=== PATIENT | female | born 1975 | race Caucasian/White ===

== ENCOUNTER 2016-03-24 11:23 | Emergency (ER) | payer SELFPAY ==
[~2016-03-24] VITALS: Ht 165.1 cm; Wt 87.1 kg
[~2016-03-24 11:23] MED LIST: ADVAIR HFA120 INHALA IH; ALBUTEROL SULF8.5 GM IH; AMOXICILLIN500 M1 PO; ANUSOL-HC21 GM PR; CEFDINIR300 MG PO; COLACE100 MG PO; CYMBALTA20 MG PO; DEPRESSION MED; EFFEXOR25 MG PO; FIORICET 50-301 EACH PO; FIORICET,ESG1 TABLET PO; FLEXERIL10 MG PO; FLEXERIL5 MG PO; HYCODAN SYRUP480 ML PO; IBUPROFEN600 MG PO; IBUPROFEN800 MG PO; INDOCIN25 MG PO; INDOCIN50 MG PO; KEFLEX500 MG PO; LEVAQUIN500 MG PO; LORTAB 5-325 M1 EACH PO; MOBIC15 MG PO; MOBIC7.5 MG PO; MOTRIN600 MG PO; MOTRIN800 MG PO; NAPROSYN500 MG PO; NAPROXEN500 MG PO; NOHOMEMEDS; NORCO 5/3251 TABLET PO; NORCO 7.5/321 TABLET PO; PEN-VEE K,VEET500 MG PO; PERCOCET 5/31 TABLET PO; PREDNISONE20 MG PO; PRILOSEC20 MG PO; PROTONIX20 MG PO; PROVENTIL17 GM IH; ROBITUSSIN AC,T10 ML PO; SEIZURE MEDICATION PO; SKELAXIN800 MG PO; TORADOL10 MG PO; ULTRACET1 TABLET PO; ULTRAM50 MG PO; VENTOLIN HFA18 GM IH; VICODIN 5-3001 EACH PO; ZOFRAN ODT4 MG PO; ZOFRAN4 MG PO; ZOFRAN8 MG PO; seizure medication
[2016-03-24 12:14] LABS: HEMATOCRIT 37.7 % (36.0-46.0); MCH 30.3 PG (29.0-34.0); MCHC 33.7 G/DL (30.0-36.0); MEAN PLAT.VOLUME 10.4 uM^3 (9.5-12.4); PLATELET COUNT 260 K/uL (156-360); RBC DIS.WIDTH-CV 12.6 % (11.8-14.6); RBC DIS.WIDTH-SD 40.7 % (39-53); RED BLOOD COUNT 4.19 M/uL (3.80-5.20); WHITE BLOOD COUNT 6.2 K/uL (4.1-10.2)
[2016-03-24 12:31] LABS: D-DIMER ELISA < 0.15 mg/L FEU (< 0.57); TROP-I INTERPRETATION NEGATIVE; TROPONIN-I < 0.01 ng/mL (0.0-0.30)
[2016-03-24 12:43] LABS: ANION GAP 6 MEQ/L (2-14); CHLORIDE 104 MEQ/L (99-109); POTASSIUM 3.7 MEQ/L (3.7-5.4); SAMPLE HEMOLYSIS CHECK 0; SAMPLE ICTERIC CHECK 0; SAMPLE LIPEMIA CHECK 0; SODIUM 139 MEQ/L (136-147)
[2016-03-24 12:49] LABS: GFR ESTIMATE (CALCULATED) > 59 mL/min/; GLUCOSE 102 mg/dL (70-99); UREA NITROGEN (BUN) 13 mg/dL (9-23)
[2016-03-24] MEDS ORDERED: NAPROSYN500 MG PO (14:42)
[2016-03-24 15:03] LABS: TROP-I INTERPRETATION NEGATIVE; TROPONIN-I < 0.01 ng/mL (0.0-0.30)
[2016-03-24 15:19] VITALS: BP 114/58
== END 2016-03-24 15:22 | disposition home or self-care (01) ==
LOC: EME 11:23
PROVIDERS: Nurse Practitioner Family
DX: M94.0 Chondrocostal junction syndrome [Tietze] (principal); M54.6 Pain in thoracic spine; R20.0 Anesthesia of skin; R20.2 Paresthesia of skin; R42 Dizziness and giddiness; R05 Cough; R06.02 Shortness of breath; R51 Headache
CPT/HCPCS: 71020; 72070; 80048; 84484; 85027; 85379; 93005; 99281; 99285

== ENCOUNTER 2016-06-11 09:10 | Emergency (ER) | payer SELFPAY ==
[~2016-06-11] VITALS: Ht 165.1 cm; Wt 86.9 kg
[2016-06-11 10:34] VITALS: BP 120/63
== END 2016-06-11 10:34 | disposition home or self-care (01) ==
LOC: EME 09:10
DX: S93.501A Unspecified sprain of right great toe, initial encounter (principal); X50.0XXA Overexertion from strenuous movement or load, initial encounter
CPT/HCPCS: 73630; 99281; 99284

== ENCOUNTER 2016-07-17 00:34 | Emergency (ER) | payer SELFPAY ==
[~2016-07-17] VITALS: Ht 165.1 cm; Wt 89.7 kg
[2016-07-17 01:19] LABS: EOSINOPHIL (%) 3.3 % (0-5); EOSINOPHIL COUNT 0.2 K/uL (0-0.3); IMMATURE GRANULOCYTE (%) 0.3 % (0.0-0.7); INSTRUMENT ABS NEUTROPHIL CT 3.6 K/uL; LYMPHOCYTE COUNT 2.8 K/uL (1.0-2.8); MCH 29.8 PG (29.0-34.0); MCHC 33.3 G/DL (30.0-36.0); MCV 89.7 FL (83-99); MONOCYTE (%) 9.1 % (3-12); MONOCYTE COUNT 0.7 K/uL (0-0.8); NEUTROPHIL (%) 48.4 % (45-76); NEUTROPHIL COUNT 3.6 K/uL (1.8-6.4); PLATELET COUNT 302 K/uL (156-360); RBC DIS.WIDTH-CV 13.1 % (11.8-14.6); RBC DIS.WIDTH-SD 43.3 % (39-53); RED BLOOD COUNT 4.46 M/uL (3.80-5.20); WHITE BLOOD COUNT 7.4 K/uL (4.1-10.2)
[2016-07-17 01:27] LABS: CHLORIDE 110 mEq/L (99-109); POTASSIUM 3.5 mEq/L (3.7-5.4); SODIUM 145 mEq/L (136-147)
[2016-07-17 01:30] LABS: GLUCOSE 97 mg/dL (70-99)
[2016-07-17 01:31] LABS: ANION GAP 11 MEQ/L (2-14)
[2016-07-17 01:32] LABS: TOTAL BILIRUBIN 0.9 mg/dL (0.0-1.0)
[2016-07-17 01:33] LABS: ALKALINE PHOSPHATASE 60 IU/L (3-129); GFR ESTIMATE (CALCULATED) > 59 mL/min/
[2016-07-17 01:34] LABS: UREA NITROGEN (BUN) 10 mg/dL (9-23)
[2016-07-17 01:37] LABS: LIPASE 21 U/L (1.0-51.0)
[2016-07-17 04:52] VITALS: BP 105/55
[2016-07-18] MEDS ORDERED: PEPCID20 MG PO (21:35)
[2016-07-18] MEDS ORDERED: CARAFATE1 GM PO (21:35)
[2016-07-18] MEDS ORDERED: PROMETHAZINE HC25 M1 PO (21:36)
== END 2016-07-17 05:02 | disposition home or self-care (01) ==
LOC: EME 00:34
PROVIDERS: Emergency Medicine
DX: K52.9 Noninfective gastroenteritis and colitis, unspecified (principal); J45.909 Unspecified asthma, uncomplicated; E78.5 Hyperlipidemia, unspecified; K21.9 Gastro-esophageal reflux disease without esophagitis; Z87.442 Personal history of urinary calculi
CPT/HCPCS: 70450; 74177; 80053; 83690; 85025; 99281; 99284; J1200; J2270; J2405; J2765; J7030

== ENCOUNTER 2016-07-18 16:26 | Emergency (ER) | payer SELFPAY ==
[~2016-07-18] VITALS: Ht 165.1 cm; Wt 90.8 kg
[2016-07-18 17:28] LABS: HEMATOCRIT 40.1 % (36.0-46.0); MCH 30.2 PG (29.0-34.0); MCHC 33.2 G/DL (30.0-36.0); MCV 90.9 FL (83-99); MEAN PLAT.VOLUME 10.1 uM^3 (9.5-12.4); PLATELET COUNT 322 K/uL (156-360); RBC DIS.WIDTH-CV 13.1 % (11.8-14.6); RBC DIS.WIDTH-SD 43.6 % (39-53); RED BLOOD COUNT 4.41 M/uL (3.80-5.20); WHITE BLOOD COUNT 9.1 K/uL (4.1-10.2)
[2016-07-18 17:40] LABS: CHLORIDE 108 mEq/L (99-109); POTASSIUM 3.8 mEq/L (3.7-5.4); SODIUM 140 mEq/L (136-147)
[2016-07-18 17:43] LABS: GLUCOSE 98 mg/dL (70-99)
[2016-07-18 17:44] LABS: ANION GAP 9 MEQ/L (2-14)
[2016-07-18 17:46] LABS: ALKALINE PHOSPHATASE 63 IU/L (3-129); GFR ESTIMATE (CALCULATED) > 59 mL/min/
[2016-07-18 17:47] LABS: UREA NITROGEN (BUN) 13 mg/dL (9-23)
[2016-07-18 17:48] LABS: TOTAL BILIRUBIN 1.1 mg/dL (0.0-1.0)
[2016-07-18 17:58] LABS: QUANTITATIVE HCG < 4.0 MIU/ML
[2016-07-18 18:51] LABS: ADD MIUA? YES; BILIRUBIN NEGATIVE; BLOOD LARGE; COLOR YELLOW ((YELLOW)); GLUCOSE (STRIP) NEGATIVE; KETONES NEGATIVE; LEUKOCYTES NEGATIVE; NITRITE NEGATIVE; PROTEIN (STRIP) NEGATIVE; SPECIFIC GRAVITY 1.016 (1.000-1.030); UROBILINOGEN 0.2 MG/DL (0.2-1.0)
[2016-07-18 18:58] LABS: BACTERIA NONE SEEN /HPF; EPITHELIAL CELLS 1+ /HPF; MUCUS TRACE /LPF; RED BLOOD CELLS TNTC /HPF (0-5); UCUL ADDED? NO; WHITE BLOOD CELLS 0-5 /HPF (0-5)
[2016-07-18] MEDS ORDERED: CARAFATE1 GM PO (21:35)
[2016-07-18] MEDS ORDERED: PEPCID20 MG PO (21:35)
[2016-07-18] MEDS ORDERED: PROMETHAZINE HC25 M1 PO (21:36)
[2016-07-18 21:47] VITALS: BP 155/86
== END 2016-07-18 21:47 | disposition home or self-care (01) ==
LOC: EME 16:26
DX: R10.33 Periumbilical pain (principal)
CPT/HCPCS: 76705; 80053; 81003; 84702; 85027; 93005; 99281; 99284; J2550

== ENCOUNTER 2016-08-17 19:12 | Emergency (ER) | payer SELFPAY ==
[~2016-08-17] VITALS: Ht 165.1 cm; Wt 91.3 kg
[~2016-08-17 19:12] MED LIST changes: +CARAFATE1 GM PO; +PEPCID20 MG PO; +PROMETHAZINE HC25 M1 PO
[2016-08-17] MEDS ORDERED: MOTRIN600 MG PO (20:00)
[2016-08-17] MEDS ORDERED: PREDNISONE50 MG PO (20:00)
[2016-08-17] MEDS ORDERED: TRAMADOL HCL50 MG PO (20:00)
[2016-08-17 20:14] VITALS: BP 122/81
== END 2016-08-17 20:14 | disposition home or self-care (01) ==
LOC: EME 19:12
DX: M54.12 Radiculopathy, cervical region (principal); J45.909 Unspecified asthma, uncomplicated
CPT/HCPCS: 99281; 99283

== ENCOUNTER 2016-09-08 15:05 | Emergency (ER) | payer SELFPAY ==
[~2016-09-08] VITALS: Ht 165.1 cm; Wt 93.3 kg
[~2016-09-08 15:05] MED LIST changes: +PREDNISONE50 MG PO; +TRAMADOL HCL50 MG PO
[2016-09-08] MEDS ORDERED: NAPROSYN500 MG PO (17:36)
[2016-09-08] MEDS ORDERED: ULTRAM50 MG PO (17:36)
[2016-09-08 17:58] VITALS: BP 165/61
== END 2016-09-08 17:59 | disposition home or self-care (01) ==
LOC: EME 15:05
DX: M79.671 Pain in right foot (principal)
CPT/HCPCS: 73630; 99281; 99283

== ENCOUNTER 2016-09-25 10:44 | Emergency (ER) | payer SELFPAY ==
[~2016-09-25] VITALS: Ht 165.1 cm; Wt 92.6 kg
[2016-09-25] MEDS ORDERED: MEDROL DOSEPAK4 MG PO (14:02)
[2016-09-25] MEDS ORDERED: FLEXERIL10 MG PO (14:02)
[2016-09-25 16:18] VITALS: BP 142/65
== END 2016-09-25 16:27 | disposition home or self-care (01) ==
LOC: EME 10:44
DX: M54.12 Radiculopathy, cervical region (principal); S46.811A Strain of other muscles, fascia and tendons at shoulder and upper arm level, right arm, initial encounter; G89.29 Other chronic pain; M79.671 Pain in right foot; M79.674 Pain in right toe(s); M48.02 Spinal stenosis, cervical region; Z87.442 Personal history of urinary calculi
CPT/HCPCS: 70450; 72141; 93005; 99281; 99284; J1885

== ENCOUNTER 2016-10-24 19:02 | Emergency (ER) | payer SELFPAY ==
[~2016-10-24] VITALS: Ht 165.1 cm; Wt 95.0 kg
[~2016-10-24 19:02] MED LIST changes: +MEDROL DOSEPAK4 MG PO
[2016-10-24 21:27] LABS: HEMATOCRIT 40.4 % (36.0-46.0); MCH 30.5 PG (29.0-34.0); MCHC 33.4 G/DL (30.0-36.0); MCV 91.4 FL (83-99); MEAN PLAT.VOLUME 9.6 uM^3 (9.5-12.4); PLATELET COUNT 282 K/uL (156-360); RBC DIS.WIDTH-CV 13.8 % (11.8-14.6); RBC DIS.WIDTH-SD 45.8 % (39-53); RED BLOOD COUNT 4.42 M/uL (3.80-5.20); WHITE BLOOD COUNT 10.4 K/uL (4.1-10.2)
[2016-10-24 21:34] LABS: CHLORIDE 104 mEq/L (99-109); POTASSIUM 3.4 mEq/L (3.7-5.4); SODIUM 138 mEq/L (136-147)
[2016-10-24 21:36] LABS: GLUCOSE 89 mg/dL (70-99)
[2016-10-24 21:38] LABS: ANION GAP 10 MEQ/L (2-14); TOTAL BILIRUBIN 0.6 mg/dL (0.0-1.0)
[2016-10-24 21:40] LABS: ALKALINE PHOSPHATASE 73 IU/L (3-129); GFR ESTIMATE (CALCULATED) > 59 mL/min/
[2016-10-24 21:41] LABS: UREA NITROGEN (BUN) 12 mg/dL (9-23)
[2016-10-24 21:43] LABS: LIPASE 35 U/L (1.0-51.0)
[2016-10-24 21:49] LABS: QUANTITATIVE HCG < 4.0 MIU/ML
[2016-10-24 22:25] LABS: ADD MIUA? YES; BILIRUBIN NEGATIVE; BLOOD MODERATE; COLOR YELLOW ((YELLOW)); GLUCOSE (STRIP) NEGATIVE; KETONES NEGATIVE; LEUKOCYTES NEGATIVE; NITRITE NEGATIVE; PROTEIN (STRIP) NEGATIVE; SPECIFIC GRAVITY 1.021 (1.000-1.030); UROBILINOGEN 0.2 MG/DL (0.2-1.0)
[2016-10-24 22:35] LABS: BACTERIA RARE /HPF; EPITHELIAL CELLS 1+ /HPF; MUCUS TRACE /LPF; UCUL ADDED? NO; WHITE BLOOD CELLS 0-5 /HPF (0-5)
[2016-10-24] MEDS ORDERED: ZOFRAN ODT4 MG PO (23:34)
[2016-10-24] MEDS ORDERED: PERCOCET 5/31 TABLET PO (23:34)
[2016-10-25 00:13] VITALS: BP 124/98
== END 2016-10-25 00:25 | disposition home or self-care (01) ==
LOC: EME 19:02
PROVIDERS: Physician Assistant
DX: R07.81 Pleurodynia (principal); R10.11 Right upper quadrant pain; K21.9 Gastro-esophageal reflux disease without esophagitis; J45.909 Unspecified asthma, uncomplicated; E78.5 Hyperlipidemia, unspecified; Z87.442 Personal history of urinary calculi
CPT/HCPCS: 71020; 74176; 76705; 80053; 81003; 83690; 84702; 85027; 99281; 99284

== ENCOUNTER 2017-02-03 23:14 | Emergency (ER) | payer SELFPAY ==
[~2017-02-03] VITALS: Ht 165.1 cm; Wt 98.5 kg
[2017-02-04 00:34] LABS: HEMATOCRIT 37.7 % (36.0-46.0); MCH 30.5 PG (29.0-34.0); MCHC 33.4 G/DL (30.0-36.0); MCV 91.3 FL (83-99); PLATELET COUNT 294 K/uL (156-360); RBC DIS.WIDTH-CV 12.3 % (11.8-14.6); RED BLOOD COUNT 4.13 M/uL (3.80-5.20)
[2017-02-04 00:42] LABS: CHLORIDE 109 mEq/L (99-109); POTASSIUM 3.6 mEq/L (3.7-5.4); SODIUM 142 mEq/L (136-147)
[2017-02-04 00:44] LABS: GLUCOSE 122 mg/dL (70-99)
[2017-02-04 00:45] LABS: ANION GAP 10 MEQ/L (2-14)
[2017-02-04 00:46] LABS: TOTAL BILIRUBIN 0.4 mg/dL (0.0-1.0)
[2017-02-04 00:47] LABS: ADD MIUA? YES; BILIRUBIN NEGATIVE; BLOOD MODERATE; COLOR STRAW ((YELLOW)); GLUCOSE (STRIP) NEGATIVE; KETONES NEGATIVE; LEUKOCYTES NEGATIVE; NITRITE NEGATIVE; PROTEIN (STRIP) NEGATIVE; SPECIFIC GRAVITY 1.005 (1.000-1.030); UROBILINOGEN 0.2 MG/DL (0.2-1.0)
[2017-02-04 00:48] LABS: ALKALINE PHOSPHATASE 74 IU/L (3-129); GFR ESTIMATE (CALCULATED) > 59 mL/min/
[2017-02-04 00:49] LABS: UREA NITROGEN (BUN) 8 mg/dL (9-23)
[2017-02-04 00:50] LABS: BACTERIA RARE /HPF; EPITHELIAL CELLS RARE /HPF; MUCUS NONE SEEN /LPF; RED BLOOD CELLS 0-5 /HPF (0-5); UCUL ADDED? NO; WHITE BLOOD CELLS 0-5 /HPF (0-5)
[2017-02-04 00:51] LABS: LIPASE 26 U/L (1.0-51.0)
[2017-02-04 00:57] LABS: QUANTITATIVE HCG < 4.0 MIU/ML
[2017-02-04] MEDS ORDERED: FLEXERIL10 MG PO (01:08)
[2017-02-04] MEDS ORDERED: PERCOCET 5/31 TABLET PO (01:08)
[2017-02-04 01:55] VITALS: BP 111/80
== END 2017-02-04 01:58 | disposition home or self-care (01) ==
LOC: EME 23:14
PROVIDERS: Physician Assistant
DX: M54.5 Low back pain (principal); R30.0 Dysuria; Z87.442 Personal history of urinary calculi; J45.909 Unspecified asthma, uncomplicated; F32.9 Major depressive disorder, single episode, unspecified; E78.5 Hyperlipidemia, unspecified; K21.9 Gastro-esophageal reflux disease without esophagitis
CPT/HCPCS: 80053; 81003; 83690; 84702; 85027; 99281; 99285; J1885

== ENCOUNTER 2017-03-05 10:10 | Emergency (ER) | payer SELFPAY ==
[~2017-03-05] VITALS: Ht 165.1 cm; Wt 98.1 kg
[2017-03-05] MEDS ORDERED: MOTRIN600 MG PO (11:07)
[2017-03-05 11:49] VITALS: BP 138/86
== END 2017-03-05 11:55 | disposition home or self-care (01) ==
LOC: EME 10:10
DX: S93.401A Sprain of unspecified ligament of right ankle, initial encounter (principal); S20.219A Contusion of unspecified front wall of thorax, initial encounter; M25.561 Pain in right knee; W01.0XXA Fall on same level from slipping, tripping and stumbling without subsequent striking against object, initial encounter; Y93.E9 Activity, other interior property and clothing maintenance; Y92.008 Other place in unspecified non-institutional (private) residence as the place of occurrence of the external cause; Z87.442 Personal history of urinary calculi; K21.9 Gastro-esophageal reflux disease without esophagitis; J45.909 Unspecified asthma, uncomplicated; F32.9 Major depressive disorder, single episode, unspecified; E78.5 Hyperlipidemia, unspecified; M19.90 Unspecified osteoarthritis, unspecified site
CPT/HCPCS: 71020; 73564; 73610; 99281; 99283

== ENCOUNTER 2017-04-12 10:08 | Emergency (ER) | payer SELFPAY ==
[~2017-04-12] VITALS: Ht 165.1 cm; Wt 99.1 kg
[2017-04-12 10:22] VITALS: BP 117/82
[2017-04-12 11:44] LABS: HEMATOCRIT 39.3 % (36.0-46.0); HEMOGLOBIN 13.3 G/DL (11.9-15.5); MCH 30.6 PG (29.0-34.0); MCHC 33.8 G/DL (30.0-36.0); MCV 90.6 FL (83-99); PLATELET COUNT 267 K/uL (156-360); RBC DIS.WIDTH-CV 12.5 % (11.8-14.6); RBC DIS.WIDTH-SD 41.4 % (39-53); RED BLOOD COUNT 4.34 M/uL (3.80-5.20); WHITE BLOOD COUNT 7.9 K/uL (4.1-10.2)
[2017-04-12 12:00] LABS: ALBUMIN 4.1 g/dL (3.2-4.8); CHLORIDE 107 mEq/L (99-109); SODIUM 140 mEq/L (136-147)
[2017-04-12 12:02] LABS: GLUCOSE 89 mg/dL (70-99); TOTAL PROTEIN 6.9 g/dL (6.4-8.3)
[2017-04-12 12:04] LABS: TOTAL BILIRUBIN 1.2 mg/dL (0.0-1.0)
[2017-04-12 12:06] LABS: ALKALINE PHOSPHATASE 91 IU/L (3-129); CREATININE 0.8 mg/dL (0.6-1.3); GFR ESTIMATE (CALCULATED) > 59 mL/min/
[2017-04-12 12:07] LABS: UREA NITROGEN (BUN) 10 mg/dL (9-23)
[2017-04-12 12:08] LABS: AST (GOT) 17 IU/L (2-34)
[2017-04-12 12:09] LABS: ALT (GPT) 20 IU/L (3-49); LIPASE 9 U/L (1.0-51.0)
[2017-04-12 12:17] LABS: QUANTITATIVE HCG < 4.0 MIU/ML
== END 2017-04-12 12:00 | disposition left against medical advice (07) ==
LOC: EME 10:08
PROVIDERS: Nurse Practitioner Family
DX: B34.9 Viral infection, unspecified (principal); J32.9 Chronic sinusitis, unspecified; R05 Cough; J02.9 Acute pharyngitis, unspecified; H92.09 Otalgia, unspecified ear; R11.2 Nausea with vomiting, unspecified; R19.7 Diarrhea, unspecified; R42 Dizziness and giddiness; Z87.442 Personal history of urinary calculi; Z53.29 Procedure and treatment not carried out because of patient's decision for other reasons
CPT/HCPCS: 80053; 83690; 84702; 85027; 87502; 99281; 99284

== ENCOUNTER 2017-05-04 13:51 | Emergency (ER) | payer SELFPAY ==
[~2017-05-04] VITALS: Ht 165.1 cm; Wt 97.3 kg
[2017-05-04] MEDS ORDERED: NAPROSYN500 MG PO (17:37)
[2017-05-04] MEDS ORDERED: ULTRAM50 MG PO (17:37)
[2017-05-04 17:49] VITALS: BP 131/75
== END 2017-05-04 17:50 | disposition home or self-care (01) ==
LOC: EME 13:51
DX: S70.01XA Contusion of right hip, initial encounter (principal); W10.9XXA Fall (on) (from) unspecified stairs and steps, initial encounter; J45.909 Unspecified asthma, uncomplicated; F32.9 Major depressive disorder, single episode, unspecified; E78.5 Hyperlipidemia, unspecified; Z87.442 Personal history of urinary calculi; G43.909 Migraine, unspecified, not intractable, without status migrainosus; K21.9 Gastro-esophageal reflux disease without esophagitis
CPT/HCPCS: 73502; 99281; 99283

== ENCOUNTER 2017-06-23 09:15 | Emergency (ER) | payer SELFPAY ==
[~2017-06-23] VITALS: Ht 162.6 cm; Wt 95.2 kg
[2017-06-23 09:55] LABS: BASOPHIL (%) 0.5 % (0-1); EOSINOPHIL (%) 2.1 % (0-5); EOSINOPHIL COUNT 0.2 K/uL (0-0.3); HEMATOCRIT 38.7 % (36.0-46.0); HEMOGLOBIN 13.1 G/DL (11.9-15.5); IMMATURE GRANULOCYTE (%) 0.5 % (0.0-0.7); LYMPHOCYTE (%) 23.4 % (15-42); LYMPHOCYTE COUNT 1.8 K/uL (1.0-2.8); MCHC 33.9 G/DL (30.0-36.0); MCV 88.8 FL (83-99); MONOCYTE (%) 9.4 % (3-12); MONOCYTE COUNT 0.7 K/uL (0-0.8); NEUTROPHIL (%) 64.1 % (45-76); NEUTROPHIL COUNT 4.8 K/uL (1.8-6.4); PLATELET COUNT 294 K/uL (156-360); RBC DIS.WIDTH-CV 12.6 % (11.8-14.6); RBC DIS.WIDTH-SD 41.2 % (39-53); RED BLOOD COUNT 4.36 M/uL (3.80-5.20); WHITE BLOOD COUNT 7.5 K/uL (4.1-10.2)
[2017-06-23 10:03] LABS: APPEARANCE CLOUDY ((CLEAR)); BILIRUBIN NEGATIVE; BLOOD MODERATE; COLOR YELLOW ((YELLOW)); GLUCOSE (STRIP) NEGATIVE; KETONES NEGATIVE; LEUKOCYTES NEGATIVE; NITRITE NEGATIVE; PROTEIN (STRIP) NEGATIVE; SPECIFIC GRAVITY 1.018 (1.000-1.030); UROBILINOGEN 0.2 MG/DL (0.2-1.0)
[2017-06-23 10:04] LABS: CHLORIDE 107 mEq/L (99-109); POTASSIUM 3.9 mEq/L (3.7-5.4); SODIUM 139 mEq/L (136-147)
[2017-06-23 10:05] LABS: GLUCOSE 102 mg/dL (70-99)
[2017-06-23 10:09] LABS: CREATININE 0.7 mg/dL (0.6-1.3); GFR ESTIMATE (CALCULATED) > 59 mL/min/
[2017-06-23 10:10] LABS: UREA NITROGEN (BUN) 8 mg/dL (9-23)
[2017-06-23 10:20] LABS: BACTERIA 2+ /HPF; EPITHELIAL CELLS 2+ /HPF; MUCUS 2+ /LPF; WHITE BLOOD CELLS 0-5 /HPF (0-5)
[2017-06-23] MEDS ORDERED: ZOFRAN4 MG PO (11:39)
[2017-06-23] MEDS ORDERED: IMODIUM A-D2 M2 PO (11:39)
[2017-06-23] MEDS ORDERED: TYLENOL WITH C1 EACH PO (11:39)
[2017-06-23] MEDS ORDERED: TRAMADOL HCL50 MG PO (12:08)
[2017-06-23 12:13] VITALS: BP 147/60
== END 2017-06-23 12:14 | disposition home or self-care (01) ==
LOC: EME 09:15
PROVIDERS: Emergency Medicine
DX: R10.9 Unspecified abdominal pain (principal); R11.10 Vomiting, unspecified; R19.7 Diarrhea, unspecified; Z87.442 Personal history of urinary calculi; K21.9 Gastro-esophageal reflux disease without esophagitis; E78.5 Hyperlipidemia, unspecified; J45.909 Unspecified asthma, uncomplicated; F32.9 Major depressive disorder, single episode, unspecified
CPT/HCPCS: 74176; 80048; 81003; 85025; 99281; 99285; J1885; J2405; J7030

== ENCOUNTER 2017-08-18 13:04 | Emergency (ER) | payer SELFPAY ==
[~2017-08-18] VITALS: Ht 165.1 cm; Wt 97.8 kg
[~2017-08-18 13:04] MED LIST changes: +IMODIUM A-D2 M2 PO; +TYLENOL WITH C1 EACH PO
[2017-08-18 14:32] LABS: HEMATOCRIT 37.9 % (36.0-46.0); HEMOGLOBIN 12.8 G/DL (11.9-15.5); MCH 29.8 PG (29.0-34.0); MCHC 33.8 G/DL (30.0-36.0); MCV 88.1 FL (83-99); PLATELET COUNT 304 K/uL (156-360); RBC DIS.WIDTH-CV 13.5 % (11.8-14.6); RBC DIS.WIDTH-SD 43.8 % (39-53); WHITE BLOOD COUNT 9.2 K/uL (4.1-10.2)
[2017-08-18 14:44] LABS: CHLORIDE 106 mEq/L (99-109); POTASSIUM 3.9 mEq/L (3.7-5.4); SODIUM 137 mEq/L (136-147)
[2017-08-18 14:45] LABS: GLUCOSE 98 mg/dL (70-99)
[2017-08-18 14:49] LABS: CREATININE 0.7 mg/dL (0.6-1.3); GFR ESTIMATE (CALCULATED) > 59 mL/min/
[2017-08-18 14:50] LABS: UREA NITROGEN (BUN) 10 mg/dL (9-23)
[2017-08-18 14:58] LABS: QUANTITATIVE HCG < 4.0 MIU/ML
[2017-08-18 16:45] VITALS: BP 124/76
== END 2017-08-18 16:45 | disposition home or self-care (01) ==
LOC: EME 13:04
PROVIDERS: Physician Assistant Medical
DX: N64.4 Mastodynia (principal); J45.909 Unspecified asthma, uncomplicated; E78.5 Hyperlipidemia, unspecified; K21.9 Gastro-esophageal reflux disease without esophagitis; F32.9 Major depressive disorder, single episode, unspecified; Z87.442 Personal history of urinary calculi
CPT/HCPCS: 80048; 84702; 85027; 99281; 99283

== ENCOUNTER 2017-10-02 17:28 | Emergency (ER) | payer SELFPAY ==
[~2017-10-02] VITALS: Ht 165.1 cm; Wt 94.6 kg
[2017-10-02] MEDS ORDERED: NAPROSYN500 MG PO (18:46)
[2017-10-02 19:11] VITALS: BP 133/70
== END 2017-10-02 19:11 | disposition home or self-care (01) ==
LOC: EME 17:28
DX: S96.911A Strain of unspecified muscle and tendon at ankle and foot level, right foot, initial encounter (principal); M77.41 Metatarsalgia, right foot; X58.XXXA Exposure to other specified factors, initial encounter; Y93.01 Activity, walking, marching and hiking
CPT/HCPCS: 73630; 99281; 99283

== ENCOUNTER 2017-10-20 12:15 | Emergency (ER) | payer OTHER ==
[~2017-10-20] VITALS: Ht 165.1 cm; Wt 92.6 kg
[2017-10-20 13:07] LABS: HEMATOCRIT 37.4 % (36.0-46.0); HEMOGLOBIN 12.5 G/DL (11.9-15.5); MCH 29.7 PG (29.0-34.0); MCHC 33.4 G/DL (30.0-36.0); MCV 88.8 FL (83-99); PLATELET COUNT 340 K/uL (156-360); RBC DIS.WIDTH-SD 44.8 % (39-53); RED BLOOD COUNT 4.21 M/uL (3.80-5.20); WHITE BLOOD COUNT 8.3 K/uL (4.1-10.2)
[2017-10-20 13:15] LABS: ALBUMIN 3.9 g/dL (3.2-4.8)
[2017-10-20 13:16] LABS: CHLORIDE 107 mEq/L (99-109); POTASSIUM 4.1 mEq/L (3.7-5.4); SODIUM 140 mEq/L (136-147)
[2017-10-20 13:18] LABS: GLUCOSE 100 mg/dL (70-99); TOTAL PROTEIN 6.9 g/dL (6.4-8.3)
[2017-10-20 13:20] LABS: TOTAL BILIRUBIN 0.9 mg/dL (0.0-1.0)
[2017-10-20 13:22] LABS: CREATININE 0.9 mg/dL (0.6-1.3); GFR ESTIMATE (CALCULATED) > 59 mL/min/
[2017-10-20 13:23] LABS: AST (GOT) 15 IU/L (2-34); UREA NITROGEN (BUN) 12 mg/dL (9-23)
[2017-10-20 13:24] LABS: ALT (GPT) 21 IU/L (3-49)
[2017-10-20 13:32] LABS: QUANTITATIVE HCG < 4.0 MIU/ML
[2017-10-20 14:00] LABS: APPEARANCE SL.HAZY ((CLEAR)); BILIRUBIN NEGATIVE; BLOOD MODERATE; COLOR YELLOW ((YELLOW)); GLUCOSE (STRIP) NEGATIVE; KETONES NEGATIVE; LEUKOCYTES TRACE; NITRITE NEGATIVE; PROTEIN (STRIP) NEGATIVE; SPECIFIC GRAVITY 1.021 (1.000-1.030); UROBILINOGEN 0.2 MG/DL (0.2-1.0)
[2017-10-20 14:04] LABS: BACTERIA RARE /HPF; EPITHELIAL CELLS 2+ /HPF; MUCUS TRACE /LPF; RED BLOOD CELLS NONE SEEN /HPF (0-5); UCUL ADDED? YES
[2017-10-20 14:16] LABS: ALKALINE PHOSPHATASE 97 IU/L (3-129)
[2017-10-20 14:53] LABS: D-DIMER ELISA < 150.00 ng/mLDDU (<230)
[2017-10-20 15:07] LABS: TROP-I INTERPRETATION NEGATIVE; TROPONIN-I < 0.01 ng/mL (0.0-0.30)
[2017-10-20 17:03] LABS: TROP-I INTERPRETATION NEGATIVE; TROPONIN-I < 0.01 ng/mL (0.0-0.30)
[2017-10-20] MEDS ORDERED: NAPROXEN500 MG PO (17:32)
[2017-10-20 17:53] VITALS: BP 136/82
== END 2017-10-20 17:55 | disposition home or self-care (01) ==
LOC: EME 12:15
PROVIDERS: Physician Assistant Medical
DX: R07.81 Pleurodynia (principal); E78.5 Hyperlipidemia, unspecified; I10 Essential (primary) hypertension; F32.9 Major depressive disorder, single episode, unspecified; J45.909 Unspecified asthma, uncomplicated; K21.9 Gastro-esophageal reflux disease without esophagitis; Z82.49 Family history of ischemic heart disease and other diseases of the circulatory system; Z87.442 Personal history of urinary calculi
CPT/HCPCS: 71046; 74018; 80053; 81003; 84484; 84702; 85027; 85379; 87086; 93005; 99281; 99285; J1885

== ENCOUNTER 2017-10-28 17:58 | Emergency (ER) | payer OTHER ==
[~2017-10-28] VITALS: Ht 165.1 cm; Wt 93.7 kg
[2017-10-28 19:35] LABS: BASOPHIL (%) 0.4 % (0-1); EOSINOPHIL (%) 1.1 % (0-5); EOSINOPHIL COUNT 0.1 K/uL (0-0.3); HEMATOCRIT 38.4 % (36.0-46.0); HEMOGLOBIN 12.6 G/DL (11.9-15.5); IMMATURE GRANULOCYTE (%) 0.4 % (0.0-0.7); LYMPHOCYTE (%) 14.6 % (15-42); LYMPHOCYTE COUNT 1.6 K/uL (1.0-2.8); MCH 29.2 PG (29.0-34.0); MCHC 32.8 G/DL (30.0-36.0); MCV 88.9 FL (83-99); MONOCYTE (%) 10.1 % (3-12); MONOCYTE COUNT 1.1 K/uL (0-0.8); NEUTROPHIL (%) 73.4 % (45-76); NEUTROPHIL COUNT 8.1 K/uL (1.8-6.4); PLATELET COUNT 299 K/uL (156-360); RBC DIS.WIDTH-CV 13.3 % (11.8-14.6); RBC DIS.WIDTH-SD 43.2 % (39-53); RED BLOOD COUNT 4.32 M/uL (3.80-5.20)
[2017-10-28 19:52] LABS: ALBUMIN 4.1 g/dL (3.2-4.8)
[2017-10-28 19:53] LABS: CHLORIDE 105 mEq/L (99-109); POTASSIUM 3.8 mEq/L (3.7-5.4); SODIUM 137 mEq/L (136-147)
[2017-10-28 19:55] LABS: GLUCOSE 88 mg/dL (70-99); TOTAL PROTEIN 7.3 g/dL (6.4-8.3)
[2017-10-28 19:58] LABS: ALKALINE PHOSPHATASE 83 IU/L (3-129)
[2017-10-28 19:59] LABS: CREATININE 0.9 mg/dL (0.6-1.3); GFR ESTIMATE (CALCULATED) > 59 mL/min/
[2017-10-28 19:59] LABS: APPEARANCE SL.HAZY ((CLEAR)); BILIRUBIN NEGATIVE; BLOOD MODERATE; COLOR YELLOW ((YELLOW)); GLUCOSE (STRIP) NEGATIVE; KETONES NEGATIVE; LEUKOCYTES SMALL; NITRITE NEGATIVE; PROTEIN (STRIP) 30; SPECIFIC GRAVITY 1.009 (1.000-1.030); UROBILINOGEN 0.2 MG/DL (0.2-1.0)
[2017-10-28 20:00] LABS: AST (GOT) 18 IU/L (2-34); DIRECT BILIRUBIN 0.4 mg/dL (0.0-0.3); UREA NITROGEN (BUN) 13 mg/dL (9-23)
[2017-10-28 20:02] LABS: ALT (GPT) 23 IU/L (3-49); LIPASE 19 U/L (1.0-51.0)
[2017-10-28 20:09] LABS: BACTERIA RARE /HPF; EPITHELIAL CELLS 1+ /HPF; MUCUS TRACE /LPF; RED BLOOD CELLS 0-5 /HPF (0-5); WHITE BLOOD CELLS 30-40 /HPF (0-5)
[2017-10-28] MEDS ORDERED: ZOFRAN ODT8 MG PO (22:06)
[2017-10-28] MEDS ORDERED: BENTYL20 MG PO (22:06)
[2017-10-28 22:29] VITALS: BP 123/56
== END 2017-10-28 22:31 | disposition home or self-care (01) ==
LOC: EME 17:58
PROVIDERS: Physician Assistant
DX: R10.9 Unspecified abdominal pain (principal); R11.0 Nausea; K21.9 Gastro-esophageal reflux disease without esophagitis; J45.909 Unspecified asthma, uncomplicated; I10 Essential (primary) hypertension; E78.5 Hyperlipidemia, unspecified; F32.9 Major depressive disorder, single episode, unspecified; Z87.442 Personal history of urinary calculi
CPT/HCPCS: 74176; 80048; 80076; 81003; 83690; 85025; 87077; 87086; 87186; 99281; 99284; J1885